=== PATIENT | female | born 2000 | race Caucasian/White ===

== ENCOUNTER 2024-04-11 14:46 | Inpatient (IN) | payer OTHER, MEDICAID, SELFPAY ==
[2024-04-11 15:21] LABS: Add Manual Diff / Slide Review NO; Basophils Absolute Auto 0 /uL (0-100); Basophils Percent Auto 0.3 % (0-2); Eosinophils Absolute Auto 0 /uL (0-450); Eosinophils Percent Auto 0.4 % (2-4); Hematocrit 33.9 % (36-46); Hemoglobin 11.4 g/dL (12.0-16.0); Lymphocytes Absolute Auto 2000 /uL (1100-4500); Lymphocytes Percent Auto 16.5 % (25-40); Mean Corpuscular HGB Conc 33.4 % (30-36); Mean Corpuscular Hemoglobin 26.6 PG (26-34); Mean Corpuscular Volume 79.5 fL (80-100); Monocytes Absolute Auto 900 /uL (0-900); Monocytes Percent Auto 7.4 % (3-14); Neutrophils Absolute Auto 9100 /uL (1500-7000); Neutrophils Percent Auto 75.4 % (50-75); Platelet Count 301 X10^3/uL (150-400); Red Blood Cell Count 4.27 X10^6/uL (4.0-5.2); Red Cell Distribution Width 13.4 % (11.6-14.8); White Blood Cell Count 12.1 X10^3/uL (4.5-11.0)
[2024-04-11] MEDS: ACETAMINOPHEN 325 MG TABLET 975 MG PO (15:24)
[2024-04-11 15:34] LABS: Alanine Aminotransferase 12 IU/L (<35); Albumin 3.9 g/dL (3.5-5.0); Albumin Globulin Ratio 1.2 (1.0-2.8); Alkaline Phosphatase 180 U/L (38-126); Aspartate Aminotransferase 21 IU/L (14-36); BUN Creatinine Ratio 14.9 (6-22); Bilirubin Total 0.5 mg/dL (0.2-1.3); Blood Urea Nitrogen 7 mg/dL (7-17); Calcium 8.6 mg/dL (8.4-10.2); Carbon Dioxide 17 mmol/L (22-32); Chloride 108 mmol/L (98-107); Estimated Glomerular Filt Rate > 60 mL/min (>60); Globulin 3.3 g/dL (1.7-4.1); Glucose 80 mg/dL (70-100); HEMOLYSIS < 15 (0-50); Potassium 3.4 mmol/L (3.4-5.1); Sodium 133 mmol/L (137-145); Total Protein 7.2 g/dL (6.3-8.2)
--- NOTE | 2024-04-11 16:20 | P.HPOB_ITS ---
OB HPI Date/Time Date of admission: 04/11/24 Date Patient Seen: 04/11/24 Time Patient Seen: 16:00 History of Present Condition Chief complaint: labor : 3 Para: 3 Estimated Date of Delivery: 04/29/24 Estimated Gestational Age (weeks): 37.3 Narrative: Cat Gutierrez is a 24 year old female at 37 weeks 3 days by sure LMP concordant with 8-week US. Here for induction of labor for gestational hypertension. In clinic today she had her second elevated BP of 136/90. First elevated BP of 143/89 in clinic on 04/02/24 at 36 weeks 1 day. Baseline preeclampsia panel collected at 36 weeks and WNL. Started feeling mild, regular contractions on her way to her routine appointment today. She has a headache that feels like a typical headache to her, has not taken medication for it. Is otherwise feeling well. Positive movements; denies vaginal leaking of fluid, visual changes, RUQ pain, and increased swelling. She transferred to [facility] at 25 weeks and her has been uncomplicated. Desires unmedicated but open to epidural, accepts IV access. Is accompanied by her mom. is at work Indications Indication for induction OB: gestational HTN/pre-eclampsia History of Present care: good care, initiated at week # (25), number of visits (6) and pounds weight gain (20) Dating criteria: LMP confirmed by 1st trimester US Ultrasounds: normal 1st trimester US and normal mid trimester US Obstetrical complications: gestational hypertension Medical complications: none Preadmission Labs Blood type: A (+) positive -: Antibody screen: negative, Cystic fibrosis screen: unknown (Declined), GBS status: positive (Clindamycin susceptible), HBsAG: negative, HIV: negative, HSV 1: unknown (Not screened), HSV 2: unknown (Not screened) and RPR/VDLR: negative -: Chlamydia screen: not detected and Gonorrhea screen: not detected -: Rubella: immune and Varicella: unknown (Not screened) HCT: 35.3 HCAB: negative PAP: Abnormal (HPV negative, ASCUS ) Cell-free DNA: Declined 1 hr GTT: 108 Narrative: Prior (ies) History: see above Evaluation Evaluation Baseline heart rate: 155 Variability: Moderate (11-25) monitor accelerations: Present Monitor Decelerations: Absent Contraction Frequency (minutes): 3 (2-3) Uterine Contraction Intensity: Moderate Status: Category l Dilation (cm): 1.5 Effacement (%): 25 Dilation: 1-2 cm Effacement: 0-30% station: -3 Position of cervix: posterior Consistency: soft Lauren score: 3 Comments: Membranes intact [facility] Medical History (Updated 04/11/24 @ 16:46 by Radha Moya CNM) Pre-eclampsia, Surgical History (Updated 04/11/24 @ 16:47 by Radha Moya CNM) History of oral surgery Family History (Updated 04/11/24 @ 16:49 by Radha Moya CNM) Other Depression Diabetes mellitus Hypertension Social History marital status: number of children: 3 household members: spouse and children lives independently: Yes caregiver/support person: No housing: house education level: high school occupational status: unemployed special rosanne needs: No Smoking Status: Never smoker Meds Home Medications and Allergies Allergies Allergy/AdvReac Type Severity Reaction Status Date / Time amoxicillin Allergy Intermediate Rash Verified 04/11/24 16:26 Review of Systems Review of Systems ROS: Yes All systems reviewed with the patient and are negative except as otherwise documented OB Exam Vital signs Blood Pressure: 130/85 Pulse Rate: 96 Temperature: 97.2 F Presentation: vertex Objective Labs 04/11/24 15:05 04/11/24 15:05 Labs: Laboratory Results - last 24 hr 04/11/24 15:05 WBC 12.1 H RBC 4.27 Hgb 11.4 L Hct 33.9 L MCV 79.5 L MCH 26.6 MCHC 33.4 RDW 13.4 Plt Count 301 Neut % (Auto) 75.4 H Lymph % (Auto) 16.5 L [place] % (Auto) 7.4 Eos % (Auto) 0.4 L Baso % (Auto) 0.3 Neut # (Auto) 9100 H Lymph # (Auto) 2000 [place] # (Auto) 900 Eos # (Auto) 0 Baso # (Auto) 0 Sodium 133 L Potassium 3.4 Chloride 108 H Carbon Dioxide 17 L BUN 7 Creatinine 0.47 L Estimated GFR > 60 BUN/Creatinine Ratio 14.9 Glucose 80 Calcium 8.6 Total Bilirubin 0.5 AST 21 ALT 12 Alkaline Phosphatase 180 H Total Protein 7.2 Albumin 3.9 Globulin 3.3 Albumin/Globulin Ratio 1.2 Assessment and Plan Assessment and Plan Assessment and Plan narrative: Assessment: Term multipara Gestational hypertension GBS positive, amoxicillin allergic Membranes intact Cervical ripening indicated FHR Category I Plan: Counseled on recomendation for IOL and informed consent obtained Admit for IOL with baker catheter and low-dose pitocin Tylenol for MARTINEZ Pre-eclampsia panel GBS prophylaxis with clindamycin once in active labor Continuous monitoring Reassess in 4 hours or sooner PRN. Time-Based Coding :: [TOTAL MINUTES] spent with patient and on the chart (including review of chart, obtaining history, exam, reviewing outside data, placing orders, documenting exam and treatment plan, and counseling patient) on [DATE].
[2024-04-11] MEDS: OXYTOCIN PREMIX 30 UNIT/500 ML PLAST..BAG IV (16:49)
[2024-04-11 16:52] VITALS: BP 130/85; PULSE 96; TEMP 36.2
[2024-04-11 17:09] LABS: Protein Creatinine Ratio Urine 0.08 GRAM/24H
[2024-04-11 17:27] LABS: Creatinine Urine Random 61.25 mg/dL
[2024-04-11 17:28] LABS: Protein (Total) Urine Random < 5 mg/dL (0-12)
[2024-04-11 18:27] VITALS: BP 130/85
--- NOTE | 2024-04-11 20:35 | PM.OBPNLAB ---
Date/Time Date Patient Seen: 04/11/24 Time Patient Seen: 20:15 Pain Control Pain control: tolerating well Comments: Cat is sitting up in bed, occasionally breathing through contractions. Coping Well. Hoping to turn off the pitocin at some point. and parents are present and supportive. VS: BP 132/84 HR 97bpm T 36.2C Temporal Pelvic Exam Dilation (cm): 5 Effacement (%): 80 station: -1 Amniotic membrane status: Intact Comments: Fernandez balloon easily reduced through cervix prior to exam. BBOW. Contractions Monitor mode: External Pitocin rate (mU/min): 3 Contraction frequency (min): 4 Contraction duration (min): 1 Contraction pattern: Regular Contraction intensity: Moderate Status status: Category l Heart Rate Baseline: 140 Monitor Accelerations: Present Monitor Decelerations: Absent Assessment and Plan Assessment: induction ongoing (approaching active labor) Plan: continuous present management Comments: Consulted [facility] and reviewed patient status, labs, BPs and plan of care. Begin antibiotics for GBS prophylaxis. Will consider AROM after 2 hours of adequate treatment.
[2024-04-11] MEDS: CLINDAMYCIN 900 MG/50 ML PIGGYBACK 50 MG IV (20:36)
[2024-04-11] MEDS: ONDANSETRON 4 MG/2 ML INJ IV (21:57)
--- NOTE | 2024-04-11 22:51 | PM.OBPNLAB ---
Date/Time Date Patient Seen: 04/11/24 Time Patient Seen: 22:51 Pain Control Pain control: tolerating well Comments: Sitting up in bed, occasionally breathing through contractions. Coping well with her mother and her at her side. Agreeable to AROM. VS: BP 129/85 HR 98 T36.2C Temporal Pelvic Exam Dilation (cm): 6 Effacement (%): 80 station: -1 Amniotic membrane status: Ruptured (AROM, Clear) Contractions Monitor mode: External Pitocin rate (mU/min): 7 Contraction frequency (min): 4 Contraction duration (min): 1 Contraction pattern: Regular Contraction intensity: Moderate Status status: Category l Heart Rate Baseline: 145 Monitor Accelerations: Present Monitor Decelerations: Absent Assessment and Plan Assessment: active labor Plan: continuous present management Comments: Continue pitocin titration, per protocol Labor support, PRN Reassess in 4 hours or sooner, PRN
--- NOTE | 2024-04-12 04:12 | P.PCNOB_ITS ---
Events: Pre-Eclampsia and Labor Induction Labor & Delivery Delivery date: 04/12/24 Intrapartal Events: None Cervical ripening method: per Fernandez bulb protocol Induction method: AROM Delivery augmentation: pitocin Delivery monitor: external FHT and external uterine Route of delivery: Episiotomy description: None L&D Laceration Description: None Quantitative Blood Loss: 225 Anesthesia Type: None Narrative: Cat labored well without anesthesia. Labor progressed steadily after AROM of clear fluid. Pitocin was slowly titrated down and then off immediately prior to second stage. Strong maternal efforts over a 30 minute second stage led to a NSVB of a vigorous baby girl in LISBETH position. NO2 was used for approximately 60 seconds prior to . There was no nuchal cord and the shoulders delivered with maternal vomiting. [place] was lifted to maternal abdomen by FOB. Apgars 7 and 9 at 1 and 5 minutes respectively. Remaining 30 units of pitocin in 500mL LR was started 334mL/hr for AMTSL. After cessation of pulsation, the cord was double clamped by CNM and cut by FOB. Cord blood hold sample was collected. Gentle cord traction and a single maternal push led to a spontaneous, Schultze delivery of an apparently intact placenta, membranes and 3VC. Fundus immediately firm and bleeding minimal. Vagina and perineum inspected and intact. QBL 225mL. Both mother and baby stable and skin to skin as I left the room. Baby 1: Infant gender: Female Presentation: vertex Position: Right Occiput Anterior Placenta delivery description: Spontaneous Cord Vessel Description: 3 Vessels score (1 min): 7 score (5 min): 9 weight: 2.977 kg Plan for aftercare: Routine care
[2024-04-12] MEDS: KETOROLAC 30 MG/ML VIAL IV (04:26)
[2024-04-12] MEDS: ACETAMINOPHEN 325 MG TABLET 650 MG PO ×4 (04:27→22:43)
[2024-04-12] MEDS: DERMOPLAST SPRAY 20% 60 ML 1 SPRAY TOP (04:32)
[2024-04-12] MEDS: IBUPROFEN 600 MG TABLET PO ×3 (10:27→22:42)
[2024-04-12] MEDS: OXYCODONE IR 5 MG TABLET PO (15:15)
[2024-04-13] MEDS: IBUPROFEN 600 MG TABLET PO ×2 (04:36→10:13)
[2024-04-13] MEDS: ACETAMINOPHEN 325 MG TABLET 650 MG PO ×2 (04:36→10:13)
--- NOTE | 2024-04-13 08:15 | P.DS_ITS ---
Discharge Providers Provider Date of admission: 04/11/24 14:46 Discharge Date: 04/13/24 Primary care physician: STERLING Gregorio Consults: 04/13/24 04:08 Consult to [employer] Associate Routine Comment: Discharge provider: Radha Moya CNM Summary Hospital Course Date Patient Seen: 04/13/24 Time Patient Seen: 08:20 Diagnoses: O80, O14.90 Hospital Course: IOL for preeclampsia (elevated BPs in clinic and doubled AST, though mostly normotensive throughout hospital admission) resulted in NSVB of a healthy baby girl. PPD1: Voiding ambulating and independently. Tolerating a general diet. Pain is well controlled with PO medication. Vaginal bleeding is light, without clots. She is eager for discharge to home today. Peripartum Data Delivery Method: Natural Vaginal Laceration Description: None Episiotomy description: None Procedures: O80 complications: none 1: Gender: Female Disposition of : home Discharge Diagnosis (1) Encounter for full-term uncomplicated delivery: Status: Acute (2) Pre-eclampsia: Status: Acute Status at Discharge Cognitive/behavioral status at discharge: oriented and calm Functional status at discharge: independent ambulation Overall status at discharge: patient is progressing back to baseline Time Spent with Patient Time attestation: Total time spent providing and/or coordinating discharge services: Time spent: Less than 30 minutes Objective Labs 04/11/24 15:05 04/11/24 15:05 Exam Vital Signs (past 8 hours): BP 119/83, HR 74, T 97.9F Other: Fundus firm @ U-1, lochia light, without clots. Perineum intact with minimal edema. Psych Appearance: grossly normal and well kempt Mental Status: mental status grossly normal Speech and Movement: speech and movement normal Mood: congruent mood Affect: normal affect Discharge Plan Discharge Plan Patient Disposition: Home Discharge orders & Medications Prescriptions: New oxycodone 5 mg Tablet 5 mg PO Q4HR PRN (Reason: Pain, Moderate (4-6)) 7 Days Qty: 6 0RF ibuprofen 600 mg Tablet 600 mg PO Q6HR PRN (Reason: Pain, Mild (1-3)) 14 Days Qty: 60 0RF Follow up/Referrals: Radha Moya CNM [Advanced Industrial Relations Analyst] - (Follow-up for BP check 04/16/24 @ 0915 Follow-up 2 week phone call 04/25/24 @ 1030 Follow-up 6 week office visit 05/23/24 @ 1030) Diet/Activity/Treatments Diet: Diet as Tolerated and Regular Activity: Bed rest x 2 weeks, no heavy lifting x 4 weeks, pelvic rest x 6 weeks Skin/Wound/Dressing Care Report to your healthcare provider any signs of infection, such as:: chills, fever, increased pain, unusual drainage and unusual redness Visit Report/Discharge Packet Instructions: DI for Depression Stand Alone Forms: Patient Portal/API, Stroke Signs & Symptoms
[2024-04-13 09:19] VITALS: BP 125/86; PULSE 75; RESP 15; TEMP 36.6
== END 2024-04-13 10:35 | disposition home or self-care (01) | DRG 560 ==
PROVIDERS: Admitting Provider Nurse Practitioner Obstetrics & Gynecology; Referring Provider Nurse Practitioner Obstetrics & Gynecology; Visit Provider Nurse Practitioner Obstetrics & Gynecology
DX: O14.94 Unspecified pre-eclampsia, complicating childbirth (principal); Z3A.37 37 weeks gestation of pregnancy; Z37.0 Single live birth
CPT/HCPCS: 36415; 59050; 80053; 82570; 84156; 85025; 86850; 86900; 86901; G0379; J1885; J2405; J2590

== ENCOUNTER 2024-04-18 16:28 | Inpatient (IN) | payer OTHER, MEDICAID, SELFPAY ==
[2024-04-18 16:48] VITALS: BP 159/97; PULSE 73; RESP 18; TEMP 36.6
[2024-04-18 17:10] VITALS: BP 150/98; BP 178/107; PULSE 73; PULSE 75; RESP 18
[2024-04-18] MEDS: LABETALOL 20 MG/4 ML SYRINGE IV (17:10)
[2024-04-18] MEDS: MAGNESIUM SULFATE 4 GM/100 ML PIGGYBACK IV (17:11)
[2024-04-18] MEDS: LACTATED RINGERS 1,000 ML 50 ML IV (17:11)
[2024-04-18 17:16] LABS: Add Manual Diff / Slide Review NO; Basophils Absolute Auto 0 /uL (0-100); Basophils Percent Auto 0.7 % (0-2); Eosinophils Absolute Auto 200 /uL (0-450); Eosinophils Percent Auto 2.4 % (2-4); Hematocrit 32.2 % (36-46); Hemoglobin 10.7 g/dL (12.0-16.0); Lymphocytes Absolute Auto 1500 /uL (1100-4500); Lymphocytes Percent Auto 22.8 % (25-40); Mean Corpuscular HGB Conc 33.2 % (30-36); Mean Corpuscular Hemoglobin 26.6 PG (26-34); Mean Corpuscular Volume 80.1 fL (80-100); Monocytes Absolute Auto 600 /uL (0-900); Monocytes Percent Auto 8.8 % (3-14); Neutrophils Absolute Auto 4200 /uL (1500-7000); Neutrophils Percent Auto 65.3 % (50-75); Platelet Count 289 X10^3/uL (150-400); Red Blood Cell Count 4.02 X10^6/uL (4.0-5.2); Red Cell Distribution Width 13.6 % (11.6-14.8); White Blood Cell Count 6.4 X10^3/uL (4.5-11.0)
[2024-04-18 17:25] LABS: Alanine Aminotransferase 18 IU/L (<35); Albumin 3.6 g/dL (3.5-5.0); Albumin Globulin Ratio 1.3 (1.0-2.8); Alkaline Phosphatase 100 U/L (38-126); Aspartate Aminotransferase 18 IU/L (14-36); BUN Creatinine Ratio 21.9 (6-22); Bilirubin Total 0.3 mg/dL (0.2-1.3); Blood Urea Nitrogen 14 mg/dL (7-17); Calcium 8.4 mg/dL (8.4-10.2); Carbon Dioxide 19 mmol/L (22-32); Chloride 114 mmol/L (98-107); Estimated Glomerular Filt Rate > 60 mL/min (>60); Globulin 2.8 g/dL (1.7-4.1); Glucose 97 mg/dL (70-100); HEMOLYSIS < 15 (0-50); Potassium 3.4 mmol/L (3.4-5.1); Sodium 140 mmol/L (137-145); Total Protein 6.4 g/dL (6.3-8.2); Uric Acid 5.6 mg/dL (2.5-6.2)
[2024-04-18] MEDS: IBUPROFEN 600 MG TABLET PO (17:28)
[2024-04-18] MEDS: ONDANSETRON 4 MG/2 ML INJ IV (17:30)
[2024-04-18 17:34] LABS: Fibrinogen 266 mg/dL (238-498)
[2024-04-18] MEDS: ACETAMINOPHEN 325 MG TABLET 975 MG PO (17:36)
--- NOTE | 2024-04-18 17:42 | P.HP_ITS ---
History of Present Illness History of Present Illness Date Patient Seen: 04/18/24 Time Patient Seen: 17:42 Date of Onset of Symptoms: 04/17/24 Chief complaint: blood pressure Narrative: 24-year-old presenting on PPD 5 at 37w4d following medical induction of labor for preeclampsia without severe features. Throughout induction BPs were well controlled throughout induction without PO or IV antihypertensives. She delivered on 8 early in the morning. BPs were also controlled well and she was discharged on PPD1. SHe has been doing well until yesterday when she had a slightly elevated BP in the 140s systolic. Overnight last night she noted MARTINEZ and began feeling overall unwell. She checked her BP and it was 150s/100s. She contacted her CNM and was started on PO Labetolol 200mg BID. She took one dose and noted continued MARTINEZ and worsening in overall sx. BP continued to rise and was found to be higher than 160s systolic. She contacted her CNM who recommended proceeding to LD for admission for Pre-E with SF management. On arrival here BP was 178/107. SHe was given IV labetolol 20mg x1 with BPs dropping down to 141/80. SHe notes continued MARTINEZ and nausea but has no vision changes or RUQ pain. She has not had any CP or SOB and has some facial swelling but no leg swelling. Roxanne does note that she had some elevated BPs with her first then developed Pre-E wo SF in the period with her second which was a twin . During the PP course she was started on Labetolol but doesnt remember the dose. This controlled her BPs well but on discharge BP got too low and she promptly discontinued dose. Outside of she has not had any blood pressure issues. [facility] Medical History (Updated 04/18/24 @ 18:04 by Baylee Bernstein MD) Pre-eclampsia, severe, delivered Pre-eclampsia, Surgical History (Updated 04/11/24 @ 16:47 by Radha Moya CNM) History of oral surgery Family History (Updated 04/11/24 @ 16:49 by Radha Moya CNM) Other Depression Diabetes mellitus Hypertension Social History marital status: number of children: 3 household members: spouse and children lives independently: Yes caregiver/support person: No housing: house education level: high school occupational status: unemployed special rosanne needs: No Smoking Status: Never smoker Meds Home Medications and Allergies Home Medications Medication Instructions Recorded Confirmed Type ibuprofen 600 mg tablet 600 mg PO Q6HR PRN Pain, Mild 04/13/24 Rx (1-3) 14 days #60 tabs oxycodone 5 mg tablet 5 mg PO Q4HR PRN Pain, Moderate 04/13/24 Rx (4-6) 7 days #6 tabs Allergies Allergy/AdvReac Type Severity Reaction Status Date / Time amoxicillin Allergy Intermediate Rash Verified 04/11/24 16:26 Review of Systems Review of Systems Narrative: + MARTINEZ + nausea - RUQ pain - vision changes - seizure Exam Vital Signs (past 8 hours): - 04/18/24 17:10 Pulse Rate 73 Blood Pressure 178/107 H Narrative Exam Narrative: GEN: Healthy appearing, well-developed, NAD. PSYCH: Good Judgment. AOx3. Normal memory, mood, and affect HEENT: -Head: NC/AT, pt notes some facial swelling (this is my first time meeting her) -Eyes: No discharge or redness CV: warm and well perfused, RRR, no murmurs LUNGS: breathing comfortably on RA, CTAB SKIN: Warm, well perfused. No skin rashes or abnormal lesions MSK: Normal gait. No deformities. No lower extremity edema. NEURO: Ambulating with no limitations. No focal deficits. Brisk reflexes bilaterally in lower extremities. No clonus noted on exam. Objective Labs 04/18/24 16:45 04/18/24 16:45 Labs: Laboratory Results - last 24 hr 04/18/24 16:45 WBC 6.4 RBC 4.02 Hgb 10.7 L Hct 32.2 L MCV 80.1 MCH 26.6 MCHC 33.2 RDW 13.6 Plt Count 289 Neut % (Auto) 65.3 Lymph % (Auto) 22.8 L [place] % (Auto) 8.8 Eos % (Auto) 2.4 Baso % (Auto) 0.7 Neut # (Auto) 4200 Lymph # (Auto) 1500 [place] # (Auto) 600 Eos # (Auto) 200 Baso # (Auto) 0 Sodium 140 Potassium 3.4 Chloride 114 H Carbon Dioxide 19 L BUN 14 Creatinine 0.64 Estimated GFR > 60 BUN/Creatinine Ratio 21.9 Glucose 97 Uric Acid 5.6 Calcium 8.4 Total Bilirubin 0.3 Conjugated Bilirubin 0.0 Unconjugated Bilirubin 0.0 AST 18 ALT 18 Alkaline Phosphatase 100 D Total Protein 6.4 Albumin 3.6 Globulin 2.8 Albumin/Globulin Ratio 1.3 Assessment & Plan Assessment and plan (1) Pre-eclampsia, severe, delivered: Status: Acute Plan: 24-year-old presenting on PPD 6 at 37w4d following medical induction of labor for preeclampsia without severe features who has now developed severe features based on MARTINEZ and BP criteria. ## Pre-E with SF: BP improved with 1 dose of IV labetolol - Admit to LD - Start Mag 4g bolus, 2g/hr x24 hrs - Start Labetolol 200mg TID, first dose tonight - May need to increase dose but BP dropped well with 1 dose IV so will start with 200 and move up as needed - PO ibuprofen + tylenol for pain/MARTINEZ - Zofran for nausea - Mag level PRN for signs of mag toxicity ## Post- day 6 - routine care - Breast pump available if needed - Bassinet at bedside for infant - PRN tylenol and ibuprofen for pain Diet: general Fluids: PO Code: full Dispo: anticipate 48 hours, 24 for mag and 24 to watch BPs for rise after d/c of mag Time-Based Coding :: [TOTAL MINUTES] spent with patient and on the chart (including review of chart, obtaining history, exam, reviewing outside data, placing orders, documenting exam and treatment plan, and counseling patient) on [DATE].
[2024-04-18 17:50] VITALS: BP 159/97
[2024-04-18] MEDS: MAGNESIUM SULFATE 20 GM/500 ML IV.SOLN IV (17:55)
[2024-04-18 18:10] LABS: Creatinine Urine Random 20.79 mg/dL; Protein (Total) Urine Random 20 mg/dL (0-12); Protein Creatinine Ratio Urine 0.96 GRAM/24H
--- NOTE | 2024-04-18 18:56 | PC.NURSE ---
1645: IV g18 inserted on right wrist,infusing well, LR running @ 50cc/hr, blood drawn from IV start
[2024-04-18] MEDS: BUTALB/APAP/CAFFEINE 50/325/40 TABLET 1 EACH PO (22:13)
[2024-04-18 22:14] VITALS: BP 125/78; PULSE 71
[2024-04-18] MEDS: LABETALOL 100 MG TABLET 200 MG PO (22:14)
[2024-04-18 23:29] VITALS: BP 110/63; BP 135/75; PULSE 68; PULSE 75; RESP 16; RESP 18; TEMP 36.9; O2SAT 97; O2SAT 99
[2024-04-19] VITALS (11 sets, daily range): BP systolic 102–131; BP diastolic 62–83; PULSE 70–90; RESP 15–17; TEMP 36.1–36.5; O2SAT 98–100
[2024-04-19] MEDS: IBUPROFEN 600 MG TABLET PO ×3 (00:05→18:03)
[2024-04-19] MEDS: ACETAMINOPHEN 325 MG TABLET 975 MG PO ×2 (01:31→09:38)
[2024-04-19] MEDS: MAGNESIUM SULFATE 20 GM/500 ML IV.SOLN IV ×2 (03:33→13:12)
--- NOTE | 2024-04-19 08:27 | PC.NURSE ---
pt resting now, states slight h/a continues. denies need for anything at this time. continues to rest quietly. and baby at bedside.
[2024-04-19] MEDS: ONDANSETRON 4 MG/2 ML INJ IV (08:57)
[2024-04-19] MEDS: LABETALOL 100 MG TABLET 200 MG PO ×3 (08:57→21:05)
--- NOTE | 2024-04-19 10:19 | PC.NURSE ---
pt was c/o h/a at 0900, gave tylenol 975mg. DTR's 1+ bilat upper and lower ext without clonus. nausea is better after zofran given and pt is nibbling on breakfast
[2024-04-19] MEDS: LACTATED RINGERS 1,000 ML 50 ML IV (11:30)
--- NOTE | 2024-04-19 12:37 | P.PN_ITS ---
Subjective Subjective Date Patient Seen: 04/19/24 Time Patient Seen: 07:32 Interval history: Pt doing well this AM, still feeling some nasuea and mild MARTINEZ, fioricet was given overnight fo rHA and was helpful Exam Vital Signs (past 8 hours): - 04/19/24 05:30 04/19/24 06:30 04/19/24 08:57 Pulse Rate 76 71 84 Respiratory Rate 15 15 Blood Pressure 127/82 102/62 131/78 Pulse Oximetry 100 99 Narrative Exam Narrative: gen: sleeping upon entering room CV: warm and well perfused Pulm: breathing comfortably on RA Extremities: no edemea in legs Neuro: Alert and oriented, non-focal Objective Labs 04/18/24 16:45 04/18/24 16:45 Labs: Laboratory Results - last 24 hr 04/18/24 04/18/24 16:45 17:45 WBC 6.4 RBC 4.02 Hgb 10.7 L Hct 32.2 L MCV 80.1 MCH 26.6 MCHC 33.2 RDW 13.6 Plt Count 289 Neut % (Auto) 65.3 Lymph % (Auto) 22.8 L [place] % (Auto) 8.8 Eos % (Auto) 2.4 Baso % (Auto) 0.7 Neut # (Auto) 4200 Lymph # (Auto) 1500 [place] # (Auto) 600 Eos # (Auto) 200 Baso # (Auto) 0 Fibrinogen 266 Sodium 140 Potassium 3.4 Chloride 114 H Carbon Dioxide 19 L BUN 14 Creatinine 0.64 Estimated GFR > 60 BUN/Creatinine Ratio 21.9 Glucose 97 Uric Acid 5.6 Calcium 8.4 Total Bilirubin 0.3 Conjugated Bilirubin 0.0 Unconjugated Bilirubin 0.0 AST 18 ALT 18 Alkaline Phosphatase 100 D Total Protein 6.4 Albumin 3.6 Globulin 2.8 Albumin/Globulin Ratio 1.3 U Random Total Protein 20 H Urine Creatinine 20.79 Protein/Creatinin Ratio 0.96 [facility] Medical History (Updated 04/18/24 @ 18:04 by Baylee Bernstein MD) Pre-eclampsia, severe, delivered Pre-eclampsia, Surgical History (Updated 04/11/24 @ 16:47 by Rdaha Moya CNM) History of oral surgery Family History (Updated 04/11/24 @ 16:49 by Radha Moya CNM) Other Depression Diabetes mellitus Hypertension Social History marital status: number of children: 3 household members: spouse and children lives independently: Yes caregiver/support person: No housing: house education level: high school occupational status: unemployed special rosanne needs: No Smoking Status: Never smoker Assessment & Plan Assessment and plan (1) Pre-eclampsia, severe, delivered: Status: Acute Plan 24-year-old presenting on PPD 7 at 37w4d following medical induction of labor for preeclampsia without severe features who has now developed severe features based on MARTINEZ and BP criteria. ## Pre-E with SF: no furthe Malia antihypertensives needed overnight, BPs well controlled now. MARTINEZ still present, fioricet added, will adjust Tylenol accordingly - cont mag 2g/hr x24 hrs, off tonight - Start Labetolol 200mg TID - PO ibuprofen + tylenol + fioricet for pain/MARTINEZ - Zofran for nausea - Mag level PRN for signs of mag toxicity ## Post- day 7 - routine care - Breast pump available if needed - Bassinet at bedside for - PRN tylenol and ibuprofen for pain Diet: general Fluids: PO Code: full Dispo: tomorrow afternoon pending BP control Time-Based Coding :: [TOTAL MINUTES] spent with patient and on the chart (including review of chart, obtaining history, exam, reviewing outside data, placing orders, documenting exam and treatment plan, and counseling patient) on [DATE].
--- NOTE | 2024-04-19 14:03 | PC.NURSE ---
see obix for all VS.
--- NOTE | 2024-04-19 14:13 | PC.NURSE ---
pts DTR's and clonus remains unchanged at 1+ bilatterally upper and lower extremities, and no clonus.
[2024-04-19] MEDS: ACETAMINOPHEN 325 MG TABLET PO (18:03)
--- NOTE | 2024-04-19 18:46 | PC.NURSE ---
b/p stable, see VS in obix. Mg++ drip off now per MD order. pt side lying in bed feeding babe. at bedside, supportive and involved with care.
[2024-04-20] MEDS: ACETAMINOPHEN 325 MG TABLET 650 MG PO ×3 (00:02→13:18)
[2024-04-20] MEDS: IBUPROFEN 600 MG TABLET PO ×3 (00:02→13:17)
[2024-04-20 06:03] VITALS: BP 128/80; PULSE 76; RESP 16; TEMP 36.7; O2SAT 99
--- NOTE | 2024-04-20 06:37 | PC.NURSE ---
Addendum entered by Cristian Rocha R.N. 04/20/24 06:46: See obix for vital signs Original Note: 04/20/2024 0638 Patient VSS throughout the night. C/O headache rating a 4/10 on the pain scale, managed with PO Tylenol and ibuprofen. Patient states that it feels the worst when she is up ambulating. Patient also states that she feels that part of her headache may be related to maternal position while nursing infant. DTR's +2 bilat LE, no clonus and no edema noted. Saline locked IV flushed and site was unremarkable.
[2024-04-20] MEDS: LABETALOL 100 MG TABLET 200 MG PO (09:14)
--- NOTE | 2024-04-20 13:04 | P.DS_ITS ---
Discharge Providers Provider Date of admission: 04/18/24 16:28 Discharge Date: 04/20/24 Discharge provider: Baylee Bernstein MD Summary Hospital Course Date Patient Seen: 04/20/24 Time Patient Seen: 12:40 Hospital Course: 4-year-old presenting on PPD 5 at 37w4d following medical induction of labor for preeclampsia without severe features. Throughout induction BPs were well controlled throughout induction without PO or IV antihypertensives. She delivered on 04/12 early in the morning. BPs were also controlled well and she was discharged on PPD1. SHe has been doing well until yesterday when she had a slightly elevated BP in the 140s systolic. Overnight last night she noted MARTINEZ and began feeling overall unwell. She checked her BP and it was 150s/100s. She contacted her CNM and was started on PO Labetolol 200mg BID. She took one dose and noted continued MARTINEZ and worsening in overall sx. BP continued to rise and was found to be higher than 160s systolic. She contacted her CNM who recommended proceeding to for admission for Pre-E with SF management. On arrival here BP was 178/107. SHe was given IV labetolol 20mg x1 with BPs dropping down to 141/80. SHe notes continued MARTINEZ and nausea but has no vision changes or RUQ pain. She has not had any CP or SOB and has some facial swelling but no leg swelling. She was admitted for management of PRe-E with SF. She was started on magnesium and PO Labetolol. She did require one dose of IV labetolol but then BPs remained in goal range and did not require further treatment. She was started on Labetolol 200mg TID and this was continued throughout. BPs remained in goal to mildly elevated for approximately 24 hours after stopping Mag and she had complete resolution of MARTINEZ and nausea so she was felt to be stable for discharge. She has f/up scheduled with her CNM on Tuesday and has a BP cuff at home that she will use to check BPs regularly and if any sx arise. She will contact irrigationist provider if BPs are rising or if sx return. Peripartum Data Delivery Method: Natural Vaginal Discharge Diagnosis (1) Pre-eclampsia, severe, delivered: Status: Acute Status at Discharge Cognitive/behavioral status at discharge: oriented Time Spent with Patient Time attestation: Total time spent providing and/or coordinating discharge services: Time spent: Less than 30 minutes Objective Labs 04/18/24 16:45 04/18/24 16:45 Exam Vital Signs (past 8 hours): - 04/20/24 06:03 Temperature 98.1 F Pulse Rate 76 Respiratory Rate 16 Blood Pressure 128/80 Pulse Oximetry 99 Narrative Exam Narrative: GEN: Healthy appearing, well-developed, NAD. PSYCH: Good Judgment. AOx3. Normal memory, mood, and affect HEENT: -Head: NC/AT, pt facial swelling improved slightly -Eyes: No discharge or redness CV: warm and well perfused LUNGS: breathing comfortably on RA SKIN: Warm, well perfused. No skin rashes or abnormal lesions MSK: Normal gait. No deformities. No lower extremity edema. NEURO: Ambulating with no limitations. No focal deficits. Discharge Plan Discharge Plan Patient Disposition: Home Discharge orders & Medications Prescriptions: New labetalol 200 mg tablet 200 mg PO TID Qty: 25 0RF Continued ibuprofen 600 mg Tablet 600 mg PO Q6HR PRN (Reason: Pain, Mild (1-3)) 14 Days Qty: 60 0RF Follow up/Referrals: Millicent Locke, CL, [employer] [[employer]] - (Tuesday, April 23 @ 1pm.) Visit Report/Discharge Packet Instructions: Pre-eclampsia and -induced Hypertension (Alternative Therapy), DI for Prescription Opioid Use Stand Alone Forms: Patient Portal/API, Stroke Signs & Symptoms Discharges patient from system. Discharge Date/Time: 04/20/24 14:46
--- NOTE | 2024-04-20 13:26 | PC.NURSE ---
tylenol and ibuprofen given per pt request for low grade h/a. IV discontinued intact, discharge paperwork given and explained to pt. questions addressed. followup appointment made with [facility] for Tuesday. eating lunch now and will leave.
== END 2024-04-20 14:46 | disposition home or self-care (01) | DRG 561 ==
PROVIDERS: Obstetrics & Gynecology; Admitting Provider Family Medicine; Referring Provider Nurse Practitioner Obstetrics & Gynecology; Visit Provider Family Medicine
DX: O14.15 Severe pre-eclampsia, complicating the puerperium (principal)
CPT/HCPCS: 36415; 80053; 80076; 84550; 85025; 85384; G0379; J2405; J3475